=== PATIENT | male | born 1950 | race Asian ===

== ENCOUNTER 2017-03-19 09:29 | Inpatient (IN) | payer MEDICARE, MEDICAID ==
[~2017-03-19] VITALS: Ht 165.1 cm; Wt 57.9 kg
[2017-03-19 10:32] LABS: Albumin 3.2 g/dL (3.4-5.0); BUN/Creatinine Ratio 11.5; Bilirubin, Total 0.4 mg/dL (0.2-1.0); Calcium 8.5 mg/dL (8.5-10.1); Potassium 4.3 mmol/L (3.5-5.1); Total Protein 7.4 g/dL (6.4-8.2)
[2017-03-19 10:56] LABS: Basophils # (auto) 0.2 uL; Eosinophils # (auto) 0.3 uL; Eosinophils % (auto) 3.1 % (0.0-7.0); Hematocrit 34.1 % (41.0-53.0); Hemoglobin 11.5 g/dL (13.5-17.5); Lymphocytes # (auto) 1.3 uL; Lymphocytes % (auto) 15.4 % (10.0-50.0); Mean Corpuscular Hemoglobin 31.5 pg (28.0-32.0); Mean Corpuscular Hgb Conc. 33.7 g/dL (32.0-36.0); Mean Corpuscular Volume 93.4 fL (80.0-100.0); Monocytes # (auto) 0.7 uL; Neutrophils # (auto) 6.2 uL; Neutrophils % (auto) 71.5 % (37.0-80.0); Platelet Count (auto) 392 10^3/uL (140-450); Red Blood Cells 3.65 10^6/uL (4.5-5.90); Red Cell Distribution Width 13.8 % (11.8-14.3); White Blood Cell 8.7 10^3/uL (4.4-10.8)
[2017-03-19] MEDS ORDERED: SODIUM CHLORIDE 0.9% 1,000 ML IV ONE ×2 (12:08→17:00)
[2017-03-19 14:18] LABS: Urine Bacteria None Seen /hpf (None Seen)
[2017-03-19 15:02] LABS: Urine Specific Gravity 1.013 (1.001-1.035)
[2017-03-19 15:03] LABS: Urine Blood Negative /uL (Negative); Urine WBC 1 /hpf (0 - 3)
[2017-03-19] MEDS ORDERED: cefTRIAXone 1GM/10ml IVPUSH 10 ML IV ONE ×2 (15:45→17:00)
[2017-03-19] MEDS ORDERED: METOCLOPRAMIDE HCL 5MG/ml INJ 2ml VIAL IV PRN (16:15)
[2017-03-19] MEDS ORDERED: ACETAMINOPHEN 325 MG TAB PO PRN (16:15)
[2017-03-19] MEDS ORDERED: TEMAZEPAM 15 MG CAP PO PRN (16:15)
[2017-03-19] MEDS ORDERED: DOCUSATE SOD 100 MG CAP PO PRN (16:15)
[2017-03-19] MEDS ORDERED: NITROGLYCERIN 0.4 MG SL TAB SL PRN (16:15)
[2017-03-19] MEDS ORDERED: MORPHINE SULFATE 10 MG/ML INJ 1ML SDV IV PRN ×2 (16:15)
[2017-03-19] MEDS ORDERED: LORazepam 0.5 MG TAB PO PRN (16:15)
[2017-03-19] MEDS ORDERED: ONDANSETRON HCL 4 MG/2 ML VIAL IV PRN (16:15)
[2017-03-19] MEDS ORDERED: ALUM & MAG HYDROX-SIMETH LIQ(MAALOX) 30 ML PO PRN (16:15)
[2017-03-19] MEDS ORDERED: FER325T PO (18:49)
[2017-03-19] MEDS ORDERED: AMLO5TAB2 PO (18:49)
[2017-03-19] MEDS ORDERED: ASPI81CH43 PO (18:49)
[2017-03-19] MEDS ORDERED: NIFE30TA76 PO (18:49)
[2017-03-19] MEDS ORDERED: LOVA20TA4 PO (18:49)
[2017-03-19] MEDS ORDERED: INFLUENZA QUAD 2017-2018 0.5 ML SYRG IM ONE (20:00)
[2017-03-19 22:21] VITALS: BP 163/66
[2017-03-20] VITALS (7 sets, daily range): BP systolic 140–155; BP diastolic 61–70
[2017-03-20 06:12] LABS: Basophils # (auto) 0.1 uL; Basophils % (auto) 1.5 % (0.0-2.0); Eosinophils # (auto) 0.4 uL; Eosinophils % (auto) 5.9 % (0.0-7.0); Hematocrit 31.9 % (41.0-53.0); Hemoglobin 10.5 g/dL (13.5-17.5); Lymphocytes # (auto) 1.1 uL; Lymphocytes % (auto) 14.5 % (10.0-50.0); Mean Corpuscular Hemoglobin 30.8 pg (28.0-32.0); Mean Corpuscular Hgb Conc. 32.9 g/dL (32.0-36.0); Mean Corpuscular Volume 93.6 fL (80.0-100.0); Monocytes # (auto) 0.6 uL; Monocytes % (auto) 8.7 % (0.0-12.0); Neutrophils % (auto) 69.4 % (37.0-80.0); Platelet Count (auto) 347 10^3/uL (140-450); Red Blood Cells 3.41 10^6/uL (4.5-5.90); Red Cell Distribution Width 13.6 % (11.8-14.3); White Blood Cell 7.3 10^3/uL (4.4-10.8)
[2017-03-20 06:36] LABS: Albumin 2.6 g/dL (3.4-5.0); Bilirubin, Total 0.3 mg/dL (0.2-1.0); Calcium 7.8 mg/dL (8.5-10.1); Potassium 4.8 mmol/L (3.5-5.1); Total Protein 6.2 g/dL (6.4-8.2)
[2017-03-20] MEDS ORDERED: ADENOSINE 49 MG in GIVE UN-DILUTED 0 ML IV ONE (10:00)
[2017-03-20] MEDS: cefTRIAXone 1GM/10ml IVPUSH 10 ML IV SCH (10:41)
[2017-03-20] MEDS: FUROSEMIDE 20 MG/2 ML VIAL IV SCH (10:42)
[2017-03-20] MEDS: ASPirin 325 MG TAB PO SCH (10:42)
[2017-03-20] MEDS: HYDROcodone-ACET 5/325MG TAB PO PRN (10:42)
[2017-03-20] MEDS ORDERED: amLODIPine BESYLATE 5 MG TAB PO ONE (22:15)
[2017-03-21] VITALS (7 sets, daily range): BP systolic 150–220; BP diastolic 43–80
[2017-03-21] MEDS ORDERED: ADENOSINE 49 MG in GIVE UN-DILUTED 0 ML IV ONE (08:45)
[2017-03-21] MEDS ORDERED: NIFEdipine 10 MG CAP PO ONE (10:00)
[2017-03-21] MEDS: cefTRIAXone 1GM/10ml IVPUSH 10 ML IV SCH (10:59)
[2017-03-21] MEDS: ASPirin 325 MG TAB PO SCH (11:03)
[2017-03-21] MEDS: amLODIPine BESYLATE 5 MG TAB PO SCH (11:04)
[2017-03-21] MEDS: FUROSEMIDE 20 MG/2 ML VIAL IV SCH (11:04)
[2017-03-21] MEDS: BOOST PLUS 8 ounce PO SCH (19:00)
[2017-03-21] MEDS: ATORVASTATIN 20 MG TAB PO SCH (21:17)
[2017-03-21] MEDS ORDERED: diphenhdrAMINE HCL 25 MG CAP PO ONE (22:30)
[2017-03-22 00:06] VITALS: BP 164/59
[2017-03-22 05:28] VITALS: BP 149/66
[2017-03-22 06:38] LABS: Basophils # (auto) 0.1 uL; Basophils % (auto) 0.8 % (0.0-2.0); Eosinophils # (auto) 0.8 uL; Eosinophils % (auto) 12.4 % (0.0-7.0); Hematocrit 33.2 % (41.0-53.0); Hemoglobin 11.1 g/dL (13.5-17.5); Lymphocytes % (auto) 14.6 % (10.0-50.0); Mean Corpuscular Hemoglobin 31.3 pg (28.0-32.0); Mean Corpuscular Hgb Conc. 33.5 g/dL (32.0-36.0); Mean Corpuscular Volume 93.7 fL (80.0-100.0); Monocytes # (auto) 0.6 uL; Monocytes % (auto) 8.4 % (0.0-12.0); Neutrophils # (auto) 4.3 uL; Neutrophils % (auto) 63.8 % (37.0-80.0); Platelet Count (auto) 358 10^3/uL (140-450); Red Blood Cells 3.54 10^6/uL (4.5-5.90); Red Cell Distribution Width 13.6 % (11.8-14.3); White Blood Cell 6.7 10^3/uL (4.4-10.8)
[2017-03-22 07:07] LABS: Albumin 2.7 g/dL (3.4-5.0); BUN/Creatinine Ratio 20.7; Bilirubin, Total 0.3 mg/dL (0.2-1.0); Calcium 7.7 mg/dL (8.5-10.1); Potassium 4.2 mmol/L (3.5-5.1); Total Protein 6.4 g/dL (6.4-8.2)
[2017-03-22] MEDS: BOOST PLUS 8 ounce PO SCH ×3 (08:00→18:17)
[2017-03-22 08:33] VITALS: BP 153/61
[2017-03-22] MEDS: FUROSEMIDE 20 MG/2 ML VIAL IV SCH (10:51)
[2017-03-22] MEDS: ASPirin 325 MG TAB PO SCH (10:52)
[2017-03-22] MEDS: amLODIPine BESYLATE 5 MG TAB PO SCH (10:52)
[2017-03-22] MEDS: cefTRIAXone 1GM/10ml IVPUSH 10 ML IV SCH (10:53)
[2017-03-22 12:38] VITALS: BP 169/66
[2017-03-22] MEDS: CLINDAMYCIN HCL 150 MG CAP PO SCH ×3 (14:18→23:43)
[2017-03-22 16:31] VITALS: BP 150/58
[2017-03-22] MEDS: ATORVASTATIN 20 MG TAB PO SCH (21:40)
[2017-03-22 22:00] VITALS: BP 157/63
[2017-03-23 05:00] VITALS: BP 147/70
[2017-03-23] MEDS: CLINDAMYCIN HCL 150 MG CAP PO SCH ×2 (05:25→14:26)
[2017-03-23 06:28] LABS: Basophils # (auto) 0.1 uL; Basophils % (auto) 0.8 % (0.0-2.0); Eosinophils # (auto) 1.2 uL; Eosinophils % (auto) 14.1 % (0.0-7.0); Hematocrit 36.9 % (41.0-53.0); Hemoglobin 12.3 g/dL (13.5-17.5); Lymphocytes # (auto) 1.2 uL; Lymphocytes % (auto) 14.4 % (10.0-50.0); Mean Corpuscular Hemoglobin 31.3 pg (28.0-32.0); Mean Corpuscular Hgb Conc. 33.3 g/dL (32.0-36.0); Monocytes # (auto) 0.6 uL; Monocytes % (auto) 7.6 % (0.0-12.0); Neutrophils # (auto) 5.2 uL; Neutrophils % (auto) 63.1 % (37.0-80.0); Nucleated Red Blood Cells % 0.1 %; Platelet Count (auto) 383 10^3/uL (140-450); Red Blood Cells 3.93 10^6/uL (4.5-5.90); Red Cell Distribution Width 13.6 % (11.8-14.3); White Blood Cell 8.3 10^3/uL (4.4-10.8)
[2017-03-23 06:55] LABS: BUN/Creatinine Ratio 20.5; Calcium 8.3 mg/dL (8.5-10.1); Potassium 4.4 mmol/L (3.5-5.1)
[2017-03-23 09:23] VITALS: BP 154/63
[2017-03-23] MEDS: BOOST PLUS 8 ounce PO SCH ×2 (10:52→14:25)
[2017-03-23] MEDS: FUROSEMIDE 20 MG/2 ML VIAL IV SCH (10:52)
[2017-03-23] MEDS: amLODIPine BESYLATE 5 MG TAB PO SCH (10:53)
[2017-03-23] MEDS: ASPirin 325 MG TAB PO SCH (10:53)
[2017-03-23] MEDS: cefTRIAXone 1GM/10ml IVPUSH 10 ML IV SCH (10:53)
[2017-03-23] MEDS: HYDROcodone-ACET 5/325MG TAB PO PRN ×2 (10:54→14:26)
[2017-03-23 13:00] VITALS: BP 142/71
[2017-03-23 16:11] VITALS: BP 154/63
[2017-03-23 16:59] VITALS: BP 152/71
== END 2017-03-23 17:00 | disposition home or self-care (01) | DRG 280 ==
LOC: ER 09:29 → TELE 09:30 → TELE-WESTW 18:08
PROVIDERS: ADMIT Internal Medicine; ATTEND Internal Medicine
DX: I13.0 Hypertensive heart and chronic kidney disease with heart failure and stage 1 through stage 4 chronic kidney disease, or unspecified chronic kidney disease (principal); I21.4 Non-ST elevation (NSTEMI) myocardial infarction; I50.33 Acute on chronic diastolic (congestive) heart failure; E44.0 Moderate protein-calorie malnutrition; L03.115 Cellulitis of right lower limb; L51.1 Stevens-Johnson syndrome; N02.8 Recurrent and persistent hematuria with other morphologic changes; N18.4 Chronic kidney disease, stage 4 (severe); L03.116 Cellulitis of left lower limb; M10.9 Gout, unspecified; E78.5 Hyperlipidemia, unspecified; R80.9 Proteinuria, unspecified; Z23 Encounter for immunization; Z88.1 Allergy status to other antibiotic agents; Z88.2 Allergy status to sulfonamides; Z88.8 Allergy status to other drugs, medicaments and biological substances; Z83.3 Family history of diabetes mellitus; Z82.49 Family history of ischemic heart disease and other diseases of the circulatory system; Z68.21 Body mass index [BMI] 21.0-21.9, adult; Z87.891 Personal history of nicotine dependence
CPT/HCPCS: 36415; 71046; 78452; 80048; 80053; 81001; 83735; 83880; 84443; 84484; 85025; 93005; 93017; 93306; 94761; 96374; 96375; J0153